=== PATIENT | male | born 1960 | race Caucasian/White ===

== ENCOUNTER 2017-10-19 16:53 | Emergency (ER) | payer BC, OTHER ==
[~2017-10-19] VITALS: Ht 182.9 cm; Wt 116.2 kg
[~2017-10-19 16:53] MED LIST: ASPEC325 PO; CLB200 PO; LRT5 PO
--- NOTE | 2017-10-19 17:18 | EMERGENCY ROOM VISIT NOTE ---
History Report prepared by Dc: Huan Anand Under the Supervision of: Dr. Mark Duque M.D. First contact with patient: 17:07 Chief Complaint: ILLNESS Stated Complaint: SICK,CHILLS History of Present Illness The patient is a 57 year old male with a past medical history of a hip replacement and partial lung lobectomy who presents to the ED with a cc of a fever and chills that began about a week ago following a bug bite that occurred on September 27. The patient explains the pain as a body ache and is also experiencing dry heaves. The patient reports that he was first put on Bactrim, but the site of the bite flared up again about a week ago with some of the pain radiating to his elbow causing soreness. The patient reports that after this flare up he took Bactrim and Prednisone. Positive Dry cough, and psoriasis. Negative for dysuria and back pain. Source of History: patient Onset: A week ago Position: elbow (left) Quality: ache Associated Symptoms: + fevers, + chills, + cough, + vomiting (Dry Heaves), No back pain, No urinary symptoms Review of Systems See HPI for pertinent positives and negatives. A total of ten systems were reviewed and were otherwise negative. Family History Patient reports no known family medical history. Social History Smoking Status: Former Smoker Marital Status: Current/Historical Medications Scheduled Doxycycline Monohydrate (Monodox), 100 MG PO BID Sulfa/Trimethoprim (Bactrim Ds 800MG/160MG), 1 TAB PO BID Scheduled PRN Ondansetron Hcl (Zofran), 4 MG PO Q8H PRN for Nausea Allergies Coded Allergies: No Known Allergies (Unverified , 12/12/09) Physical Exam Vital Signs Date Time Temp Pulse Resp B/P (MAP) Pulse Ox O2 Delivery O2 Flow Rate FiO2 10/19/17 18:50 37.7 73 20 163/89 98 Room Air 10/19/17 17:29 94 Room Air 10/19/17 16:56 37.8 110 20 151/78 94 Room Air Physical Exam GENERAL: Awake, alert, well-appearing, NAD, wearing glasses HENT: Normocephalic, atraumatic. EYES: Normal conjunctiva. Sclera non-icteric. PERRL. No anisocoria. NECK: Supple. No nuchal rigidity. FROM. RESPIRATORY: CTAB, no rhonchi, wheezing, crackles CARDIAC: Tachycardic, regular rhythm, no MRG ABDOMEN: Soft, NTND, BS+ MSK: No chest wall TTP, no LE edema, Good AROM and PROM NEURO: GCS 15, CN 2-12 intact, moves all 4s on command SKIN: no jaundice noted. Diffused erythema over left proximal UE to elbow. Plaque like rash over lower abdomen Medical Decision & Procedures ER Provider Diagnostic Interpretation: Radiology results as stated below per my review and radiologist interpretation: SINGLE VIEW CHEST CLINICAL HISTORY: Fever. Sepsis. FINDINGS: An AP, portable, upright chest radiograph is compared to study dated 11/17/2009. The examination is degraded by portable technique and patient rotation. The heart is top normal for projection and there is atherosclerotic calcification of the thoracic aorta. The pulmonary vasculature is noncongested. There is patchy airspace consolidation at the left lung base. Atelectasis is noted at the right lung base. No large pleural effusion or pneumothorax is seen. Scattered calcified granulomas are observed. The bony thorax is grossly intact. Degenerative changes noted in the thoracic spine. IMPRESSION: There is patchy airspace consolidation at the left lung base typical in appearance for pneumonia. Radiographic follow-up to resolution is recommended. Electronically signed by: Gabe Mora M.D. 10/19/2017 6:36 PM Dictated Date/Time: 10/19/2017 6:35 PM Laboratory Results 10/19/17 17:45 Red Blood Count 4.35, Mean Corpuscular Volume 89.0, Mean Corpuscular Hemoglobin 31.0, Mean Corpuscular Hemoglobin Concent 34.9, Mean Platelet Volume 9.5, Neutrophils (%) (Auto) 82.2, Lymphocytes (%) (Auto) 9.4, Monocytes (%) (Auto) 7.2, Eosinophils (%) (Auto) 0.5, Basophils (%) (Auto) 0.2, Neutrophils # (Auto) 5.23, Lymphocytes # (Auto) 0.60, Monocytes # (Auto) 0.46, Eosinophils # (Auto) 0.03, Basophils # (Auto) 0.01 10/19/17 17:45 Test 10/19/17 17:45 10/19/17 17:47 White Blood Count 6.36 K/uL (4.8-10.8) Red Blood Count 4.35 M/uL (4.7-6.1) Hemoglobin 13.5 g/dL (14.0-18.0) Hematocrit 38.7 % (42-52) Mean Corpuscular Volume 89.0 fL (80-100) Mean Corpuscular Hemoglobin 31.0 pg (25-34) Mean Corpuscular Hemoglobin Concent 34.9 g/dl (32-36) Platelet Count 256 K/uL (130-400) Mean Platelet Volume 9.5 fL (7.4-10.4) Neutrophils (%) (Auto) 82.2 % Lymphocytes (%) (Auto) 9.4 % Monocytes (%) (Auto) 7.2 % Eosinophils (%) (Auto) 0.5 % Basophils (%) (Auto) 0.2 % Neutrophils # (Auto) 5.23 K/uL (1.4-6.5) Lymphocytes # (Auto) 0.60 K/uL (1.2-3.4) Monocytes # (Auto) 0.46 K/uL (0.11-0.59) Eosinophils # (Auto) 0.03 K/uL (0-0.5) Basophils # (Auto) 0.01 K/uL (0-0.2) RDW Standard Deviation 46.4 fL (36.4-46.3) RDW Coefficient of Variation 14.1 % (11.5-14.5) Immature Granulocyte % (Auto) 0.5 % Immature Granulocyte # (Auto) 0.03 K/uL (0.00-0.02) Anion Gap 7.0 mmol/L (3-11) Est Creatinine Clear Calc Drug Dose 96.4 ml/min Estimated GFR () 83.4 Estimated GFR (Non- 72.0 BUN/Creatinine Ratio 11.2 (10-20) Calcium Level 8.3 mg/dl (8.5-10.1) Total Bilirubin 0.4 mg/dl (0.2-1) Direct Bilirubin 0.1 mg/dl (0-0.2) Aspartate Amino Transf (AST/SGOT) 21 U/L (15-37) Alanine Aminotransferase (ALT/SGPT) 34 U/L (12-78) Alkaline Phosphatase 81 U/L (45-117) Total Protein 7.6 gm/dl (6.4-8.2) Albumin 3.1 gm/dl (3.4-5.0) Lyme Disease IgG Antibody POS (NEG) Venous Blood pH 7.48 (7.36-7.41) Venous Blood Partial Pressure CO2 35 mmHg (38.0-50.0) Venous Blood Partial Pressure O2 61 mmHg Venous Blood HCO3 25 mmol/L Venous Blood Oxygen Saturation 91.7 % Venous Blood Base Excess 1.9 mEq/L Laboratory results reviewed by me Medications Administered Medications (Trade) Dose Ordered Sig/Natasha Route Start Time Stop Time Status Last Admin Dose Admin Sodium Chloride 2,000 ml @ 999 mls/hr Q2H1M STAT IV 10/19/17 17:20 10/19/17 19:20 DC 10/19/17 18:00 999 MLS/HR Vancomycin HCl 2000 mg/Sodium Chloride 540 ml @ 200 mls/hr ONE STAT IV 10/19/17 17:20 10/19/17 20:01 10/19/17 17:59 200 MLS/HR Ketorolac Tromethamine (Toradol Inj) 30 mg NOW STAT IV 10/19/17 17:20 10/19/17 17:23 DC 10/19/17 18:00 30 MG Acetaminophen (Tylenol Tab) 650 mg NOW STAT PO 10/19/17 17:20 10/19/17 17:23 DC 10/19/17 17:59 650 MG ECG Per My Interpretation Indication: vomiting (Dry heaves ), weakness Rate (beats per minute): 98 Rhythm: normal sinus Findings: other (Normal intervals and normal axis) ED Course 1713: The patient was evaluated in room C11B. A complete history and physical exam was performed. 1901: I reevaluated the patient and discussed lab and imaging results 1929: I reevaluated the patient. Discussed results and discharge instructions: He verbalized understanding and agreement. The patient is ready for discharge. Medical Decision Nursing notes reviewed. Ancillary studies and prior records reviewed. The patient is a 57 year old male with a past medical history of a hip replacement and partial lung lobectomy who presents to the ED with a cc of a fever and chills that began about a week ago following a bug bite that occurred on September 27. Differential diagnosis: Etiologies such as viral syndrome, otitis, pharyngitis, pneumonia, influenza, meningitis, urinary tract infection, sepsis, bacteremia, cellulitis, abscess, MRSA infection, DVT, necrotizing fasciitis, dermatitis, drug eruption, as well as others were entertained.. Patient was seen and evaluated the bedside. The patient has had a history of being prescribed antibiotics x2 over the last 2 weeks for possible cellulitic skin infection. The patient was placed on Bactrim each time. The patient believes he has some sort of bite while down at [place]. Patient has developed fever. Also chills. Patient does not look toxic in appearance. Patient did have blood work completed along with a VBG blood work, Lyme's test, urinalysis and chest x-ray to rule out concomitant infection. The patient does have an area of cellulitis. The patient was given a dose of vancomycin. Patient's blood work shows a normal white blood cell count. Gas is normal. Bicarb also normal. I do not believe that the patient requires further treatment as the patient did test positive for Lyme's and he may have a concomitant left lower lobe pneumonia. I believe Doxy is suitable treatment. Curb 65 score of 0. Patient did receive a first dose. Believe is suitable for outpatient follow-up treatment at this time. Blood [facility] cultures were drawn and if they do grow something patient will receive a call back. I did explain all results to the patient. Patient was given strict follow-up, discharge, and return precautions. All questions were answered. Patient was deemed suitable for outpatient follow-up at this time. Patient agreed with the plan of care and was safely discharged home. Medication Reconcilliation Current Medication List: was personally reviewed by me Blood Pressure Screening Patient's blood pressure: Elevated blood pressure Blood pressure disposition: Referred to PCP Impression Primary Impression: Acute Lyme disease Additional Impression: Pneumonia Scribe Attestation The scribe's documentation has been prepared under my direction and personally reviewed by me in its entirety. I confirm that the note above accurately reflects all work, treatment, procedures, and medical decision making performed by me. Departure Information Dispostion Home / Self-Care Prescriptions Ondansetron Hcl (ZOFRAN) 4 Mg Tab 4 MG PO Q8H Y for Nausea, #12 TAB Prov: Mark Duque M.D. 10/19/17 Doxycycline Monohydrate (Monodox) 100 Mg Cap 100 MG PO BID for 21 Days, #42 CAP Prov: Mark Duque M.D. 10/19/17 Referrals No Doctor, Assigned (PCP) Forms HOME CARE DOCUMENTATION FORM, IMPORTANT VISIT INFORMATION, WORK / SCHOOL INSTRUCTIONS Patient Instructions ED Lyme Disease, ED Pneumonia Adult, My [facility] Additional Instructions Please return to the emergency department if you have worsening or recurrent symptoms not amenable to at-home treatment. Please call for a follow-up appointment with her primary care physician. Please take your medications as prescribed. If you have other concerns and/or complaints please feel free to also call your primary care physician's office or return the ED for further evaluation, management, and treatment. You received narcotic or benzodiazepene medication while in the emergency room today. This is an addictive medication that may cause drowziness as well as constipation. Do not drive, operate heavy machinery, or drink alcohol under the influence of this medication. You may take 600 mg Ibuprofen every 6 hours as needed for pain/fever with food unless told by your physician not to take NSAIDs. You may take tylenol 650 mg every 6 hours as needed for pain/fever unless told by your physician to not take it or have liver problems. You may take motrin and tylenol separately or at the same time. Take your medications as prescribed. If taking an antibiotic consider taking a probiotic and/or eating yogurt, but at the least, please take with food as it can cause upset stomach. If culture results are not available at discharge, if they are positive for concern of infection, you will be informed of the results as soon as they are available. You have been examined and treated today on an emergency basis only. This is not a substitute for, or an effort to provide, complete comprehensive medical care. It is impossible to recognize and treat all injuries or illnesses in a single emergency department visit. It is therefore important that you follow up closely with [facility], your PCP, and/or your specialist(s). Call as soon as possible for an appointment. Thank you for your time and consideration. I look forward to speaking with you again soon. Please don't hesitate to call us if you have any questions. Problem Qualifiers Additional Impression: Pneumonia Pneumonia type: due to unspecified organism Laterality: left Lung location : lower lobe of lung Qualified Codes: J18.1 - Lobar pneumonia, unspecified organism
[2017-10-19] MEDS ORDERED: SODIUM CHLORIDE 0.9% 1000ML 2,000 ML IV STA (17:20)
[2017-10-19] MEDS ORDERED: ACETAMINOPHEN 325 MG TAB PO STA (17:20)
[2017-10-19] MEDS ORDERED: VANCOMYCIN IV 2,000 MG in SODIUM CHLORIDE 0.9% 500ML 500 ML IV STA (17:20)
[2017-10-19] MEDS ORDERED: KETOROLAC TROMETHAMINE 30 MG/ML VIAL IV STA (17:20)
[2017-10-19 17:29] VITALS: O2SAT 94; Ht 182.9 cm; Wt 116.2 kg
[2017-10-19] MEDS ORDERED: VANCOMYCIN CONSULT ACTIVE PRN (17:30)
[2017-10-19 18:11] LABS: BASO % 0.2 %; BASO ABS # 0.01 K/uL (0-0.2); EOS % 0.5 %; EOS ABS # 0.03 K/uL (0-0.5); HEMATOCRIT 38.7 % (42-52); HEMOGLOBIN 13.5 g/dL (14.0-18.0); IG# 0.03 K/uL (0.00-0.02); LYMPH % 9.4 %; MEAN CORPUSCULAR HGB CONC 34.9 g/dl (32-36); MEAN PLATELET VOLUME 9.5 fL (7.4-10.4); MONO % 7.2 %; MONO ABS # 0.46 K/uL (0.11-0.59); NEUT % 82.2 %; NEUT ABS # 5.23 K/uL (1.4-6.5); PLATELET COUNT 256 K/uL (130-400); RED CELL DISTRIBUTION WIDTH CV 14.1 % (11.5-14.5); RED CELL DISTRIBUTION WIDTH SD 46.4 fL (36.4-46.3); WHITE BLOOD COUNT 6.36 K/uL (4.8-10.8)
[2017-10-19] MEDS ORDERED: SULF800T23 PO (18:12)
[2017-10-19 18:31] LABS: ALBUMIN 3.1 gm/dl (3.4-5.0); CALCIUM 8.3 mg/dl (8.5-10.1); CREATININE 1.14 mg/dl (0.60-1.40); POTASSIUM 4.1 mmol/L (3.5-5.1); TOTAL PROTEIN 7.6 gm/dl (6.4-8.2)
--- NOTE | 2017-10-19 18:38 | DIAGNOSTIC IMAGING REPORT ---
SINGLE VIEW CHEST CLINICAL HISTORY: Fever. Sepsis. FINDINGS: An AP, portable, upright chest radiograph is compared to study dated 11/17/2009. The examination is degraded by portable technique and patient rotation. The heart is top normal for projection and there is atherosclerotic calcification of the thoracic aorta. The pulmonary vasculature is noncongested. There is patchy airspace consolidation at the left lung base. Atelectasis is noted at the right lung base. No large pleural effusion or pneumothorax is seen. Scattered calcified granulomas are observed. The bony thorax is grossly intact. Degenerative changes noted in the thoracic spine. IMPRESSION: There is patchy airspace consolidation at the left lung base typical in appearance for pneumonia. Radiographic follow-up to resolution is recommended. Electronically signed by: Gabe Mora M.D. 10/19/2017 6:36 PM Dictated Date/Time: 10/19/2017 6:35 PM
[2017-10-19 18:50] VITALS: TEMP 37.7
[2017-10-19] MEDS ORDERED: DOXYCYCLINE HYCLATE 100 MG CAP PO STA (18:58)
[2017-10-19] MEDS ORDERED: DOXY100C76 PO (19:21)
[2017-10-19] MEDS ORDERED: ONDA4TAB46 PO (19:21)
[2017-10-19 19:35] VITALS: BP 159/84; PULSE 75; O2SAT 99
== END 2017-10-19 19:25 | disposition home or self-care (01) ==
LOC: C.EDB 16:54 → C.EDC 19:25
DX: A69.20 Lyme disease, unspecified (principal); J18.1 Lobar pneumonia, unspecified organism

== ENCOUNTER 2019-07-07 09:15 | Inpatient (IN) ==
--- NOTE | 2019-07-01 11:12 | History & Physical Report ---
Date of Service July 01, 2019 Assessment & Plan (1) Neurogenic claudication due to lumbar spinal stenosis: This time the patient presents with worsening pain and decline in strength affecting predominantly left lower extremity. Based on his presentation and imaging I am recommending an urgent lumbar decompression and fusion to adequately decompress the nerves, reestablish foraminal height and hopefully halt the progression of strength deficits and permanent neurologic sequela affecting predominantly left lower extremity. With time he hopefully regain some strength. He would also be able to return to work. Risk benefits pros cons alternatives were outlined in detail. Try to have surgery range performed in a stop in time. Present on Admission?: Yes History of Present Illness Chief Complaint: Back and bilateral leg pain with weakness Primary Care Provider: Darin Aviles PA-C This is a 59-year-old male that returns to our office with progressive decline in status since his last visit. He describes lumbosacral back pain radiating to the bilateral buttocks with extension of the pain down the left lower extremity. He has been unable to work since the symptoms began and he is limitations with any standing and walking. He is describing marked progressive weakness affecting particularly left lower extremity with pushoff during ambulation. Allergies Allergy/AdvReac Type Severity Reaction Status Date / Time No Known Allergies Verified 05/18/19 11:09 Home Medications Home Medications Medication Instructions Recorded Confirmed Type gabapentin 300 mg capsule 300 mg PO USEASDIRECTD #90 cap 03/24/19 05/18/19 Rx gabapentin 300 mg capsule 300 mg PO USEASDIRECTD #90 cap 03/24/19 05/18/19 Rx lisinopril 20 1 tab PO QAM 03/24/19 05/18/19 History mg-hydrochlorothiazide 25 mg tablet meloxicam 7.5 mg tablet 7.5 mg PO BID tab 03/24/19 05/18/19 History Past Med/Surg History Social History Preferred Language: Beninese Communication Ability: Effective Beliefs That Will Affect Care: None Current Living Situation: Family Feels Safe at Home: Yes Smoking Status: Never smoker Second Hand Exposure: Yes (DAILY BASIS) ; Hx Alcohol Use: Yes Alcohol type: beer Hx Substance Use: No Physical Exam Physical Exam: Patient is alert and oriented On exam patient has marked tension signs with straight leg raising on the leftsevere pain on the right. Was able to stand and ambulate about the room with an antalgic gait. He is unable to perform a single heel raise on the left. The right is a 5 or 5. Quadriceps appears to be intact on bench exam. Dorsiflexion is intact and symmetric bilaterally. There is dense numbness to expection of the left lower extremity compared to the right. Results & Data Diagnostic Findings MRI of the lumbar spine demonstrates advanced degenerative disc disease with disc herniation at L5-S1. Adjacent levels appear to be healthy and well aligned. There is significant neural compression vertically on the left side affecting the traversing S1 nerve root. There is advanced bilateral neuroforaminal disease as well.
[~2019-07-07 09:15] MED LIST changes: +ACETAMINOPHEN 500 MG TAB PO SCH; -ASPEC325 PO; +CEFAZOLIN 2000MG 2,000 MG/15 ML SYR IV SCH; -CLB200 PO; +CeleBREX 200 MG CAP PO SCH; +GABAPENTIN 600 MG DOSE PO SCH; +LR 15ML/HR IV SCH; -LRT5 PO
[2019-07-07] MEDS ORDERED: MIDAZOLAM HCL 1 MG/ML 2ML VIAL ONE (10:22)
[2019-07-07] MEDS ORDERED: ONDANSETRON INJ 2 MG/ML 2 ML VIAL ONE (10:22)
[2019-07-07] MEDS ORDERED: LIDOCAINE HCL 2% 2 ML VIAL/AMP(20MG/ML) INFIL ONE (10:22)
[2019-07-07] MEDS ORDERED: ROCURONIUM BROMIDE 10 MG/ML 5 ML VIAL ONE (10:22)
[2019-07-07] MEDS ORDERED: fentaNYL citrate 100 MCG/2 ML VIAL ONE ×3 (10:22→14:32)
[2019-07-07] MEDS ORDERED: PROPOFOL IV EMULSION 10 MG/ML 20 ML VIAL IV ONE (10:22)
[2019-07-07] MEDS ORDERED: DEXAMETHASONE SOD INJ 4 MG/ML VIAL ONE (10:22)
--- NOTE | 2019-07-07 10:22 | History & Physical Bridge Note ---
Date of Service July 07, 2019 History & Physical Bridge Note I have examined the patient, reviewed the History & Physical and in the interval since the performance of the History & Physical I have noted the following changes of clinical significance: no changes noted
[2019-07-07] MEDS ORDERED: ONDANSETRON INJ 2 MG/ML 2 ML VIAL IV PRN ×2 (10:53→16:18)
[2019-07-07] MEDS ORDERED: HYDROmorphone INJ 1 MG/ML SYRINGE IV PRN ×2 (10:53→16:18)
[2019-07-07] MEDS ORDERED: ePHEDrine sulfate 50 MG/ML AMP IV PRN (10:53)
[2019-07-07] MEDS ORDERED: ATROPINE SULFATE 0.1 MG/ML 10ML SYR IV PRN (10:53)
[2019-07-07] MEDS ORDERED: BUPIVACAINE/EPINEPHRINE 0.5% MPF 1:200,000 10 ML VIAL ONE (11:00)
[2019-07-07] MEDS ORDERED: BACITRACIN INJ 50,000 UNIT VIAL ONE (11:01)
[2019-07-07] MEDS ORDERED: NEOSTIGMINE METHYLSULFATE 5 MG/5 ML SYR ONE (12:56)
[2019-07-07] MEDS ORDERED: GLYCOPYRROLATE 0.2 MG/ML VIAL ONE (12:56)
[2019-07-07] MEDS ORDERED: FLOSEAL HEMOSTATIC MATRIX 10ML TOP ONE ×3 (13:03→13:04)
--- NOTE | 2019-07-07 13:43 | Operative Report ---
Post Operative Report Pre & Post Diagnosis Operation Date: 07/07/19 11:05 Pre-Op Diagnosis: Spinal Stenosis, Lumbar Region Post-Op Diagnosis: Spinal Stenosis, Lumbar Region I identified the patient and participated in the time-out.: Yes Procedure Operation Date: 07/07/19 11:05 Actual Procedures #1 lumbar decompression bilateral medial facetectomies and foraminotomies L5-S1 per #2 posterior spinal fusion L5-S1 per #3 placement posterior instrumentation L5-S1 per #4 interbody fusion L5-S1. #5 placement of titanium cage 14 x 26 mm at L5-S1 per #6 placement of locally harvested morselized autograft in the posterior lateral gutters. #7 placement infuse collagen sponge count master graft in the posterior lateral gutters and ostial amp and interbody space. Surgeon Дмитрий Estrella, Biochemistry Technologist Emilee Grimes Estimated Blood Loss 200 Findings See Below The patient is 6 foot tall weighing over 122 kg with a BMI in excess of 36. The patient's body habitus did add significant technical difficulty throughout the procedure requiring her deepest retractors and longus instruments in order to perform his operation. This added at least 50% increase in operative time. Specimens None Indications This is a 59-year-old male who presents with worsening back and right leg pain with progressive weakness. Subsequently we moved forward with urgent decompression fusion. Description of Procedure Patient was met with preop the case discussed all questions were addressed at that point patient was taken back to operative suite underwent intubation placed in a prone position on the Clemente table on top of the Wyatt frame. All bony prominences well-padded eyes inspected to ensure no external pressure placed upon the. This point the lumbar spine was prepped and draped in normal sterile fashion. Sharp dissection with the assistance of Bovie cautery performed down to and exposing the lamina and transverse processes of L5 and sacral ala bilaterally. From caudal cephalad fashion complete laminectomy of L5 was performed including medial facetectomies and foraminotomies particular addressing severe stenosis and pressure on the exiting L5 and S1 nerve roots on the left. There is evidence of calcified disc material attached directly to the S1 root on the left. After this was removed pedicle screws were placed in L5 and S1 levels bilaterally with assistance of fluoroscopy and proper sized paul placed. By way of a transforaminal approach on the left complete discectomy was performed endplates coated to subcortical bleeding bone and a 14 x 26 mm titanium cage filled with osteo-bone graft tapped in position. The rods were then locked in final position bilaterally. The transverse processes of L5 and the sacral ala burred to subcortical bleeding bone. Infuse collagen sponge master graft local autograft placed in the posterior lateral gutters. 15 round TUYET drain inserted. The incision was then closed with 1 Vicryl in the fascia 2-0 Vicryl subcutaneously and 4 Monocryl for final skin closure. Steri-Strip sterile dressings placed. Patient will continue PACU stable addition. Please note spinal cord monitoring was utilized that the procedure no changes noted. Lastly Emilee Grimes was present at the entire procedure involved the patient positioning complex portions of the surgery and final skin closure. I attest to the content of the Intraoperative Record and any orders documented therein. Any exceptions are noted below.
[2019-07-07] MEDS ORDERED: HYDROmorphone INJ 2 MG/ML SYR/VIAL ONE (14:05)
[2019-07-07] MEDS: fentaNYL citrate 100 MCG/2 ML VIAL IV PRN ×4 (14:33→14:54)
--- NOTE | 2019-07-07 14:35 | Fluoroscopy Report ---
LUMBAR SPINE, INTRAOPERATIVE FLUOROSCOPY HISTORY: L5-S1 decompression fusion. FLUOROSCOPY TIME: 20 seconds. FINDINGS: Intraoperative fluoroscopy was provided for the lumbar spine. 2 fluoroscopic spot images we re obtained. Posterior decompression fusion at L5-S1 with pedicle screws and rods. There is a disc sp acer present. The hardware appears intact. IMPRESSION: Fluoroscopy provided for a L5-S1 posterior decompression and fusion. ACT 112: Negative or not required by law. Electronically signed by: Jason Nieves M.D. 07/07/2019 2:33 PM
[2019-07-07] MEDS ORDERED: HYDROmorphone INJ 1 MG/ML SYRINGE ONE (15:22)
--- NOTE | 2019-07-07 15:53 | Anesthesiology Progress Note ---
Date of Service July 07, 2019 Anesthesia Post Procedure Vital Signs Vital Signs: Temp Pulse Pulse Resp BP BP Pulse Ox 07/07/19 15:40 75 13 118/74 92 07/07/19 15:30 83 13 128/88 92 07/07/19 15:20 70 15 117/74 94 07/07/19 15:10 36.6 C 70 12 115/79 95 07/07/19 15:00 83 12 131/88 94 07/07/19 14:50 84 12 119/84 95 07/07/19 14:40 79 12 124/89 94 07/07/19 14:30 85 13 113/93 96 07/07/19 14:24 36.6 C 77 12 156/85 H 96 07/07/19 10:05 36.9 C 82 18 153/88 H 94 Pain Intensity Lower Back: Pain Intensity: 6 Transfer of Care Handoff Completed per policy Notes Mental Status: alert / awake / arousable and participated in evaluation Patient Amnestic to Procedure: Yes Nausea / Vomiting: adequately controlled Pain: adequately controlled Airway Patency, RR, SpO2: stable & adequate BP & HR: stable & adequate Hydration State: stable & adequate Anesthetic Complications: no major complications apparent and Pt Satisfied with anesthetic care
[2019-07-07] MEDS ORDERED: METOCLOPRAMIDE HCL INJ 5 MG/ML 2 ML VIAL IV PRN (16:18)
[2019-07-07] MEDS ORDERED: NALOXONE HCL 0.4 MG/1 ML VIAL/CARP IV PRN (16:18)
[2019-07-07] MEDS ORDERED: ALUMINUM/MAGNESIUM SUSP 30 ML UDC PO PRN (16:18)
[2019-07-07] MEDS ORDERED: MAGNESIUM HYDROXIDE SUSP 30 ML UDC PO PRN (16:18)
[2019-07-07] MEDS ORDERED: PROMETHAZINE HCL 12.5 MG in SODIUM CHLORIDE 0.9% 50 ML IV PRN (16:18)
[2019-07-07] MEDS ORDERED: DO NOT ADMINISTER FLU VACCINE PRN (16:18)
[2019-07-07] MEDS ORDERED: ACETAMINOPHEN 500 MG TAB PO PRN (16:18)
[2019-07-07] MEDS ORDERED: TRAMADOL HCL 50 MG TABLET PO PRN (16:18)
[2019-07-07] MEDS ORDERED: SOD PHOSPHATE/SOD BIPHOSPHATE ENEMA 132 ML BTL PR PRN (16:18)
[2019-07-07] MEDS ORDERED: ONDANSETRON 4 MG OD TAB PO PRN (16:18)
[2019-07-07] MEDS ORDERED: ACETAMINOPHEN 1,000 MG/100 ML VIAL IV PRN (16:18)
[2019-07-07] MEDS ORDERED: LORazepam 0.5 MG TAB PO PRN (16:18)
[2019-07-07] MEDS ORDERED: FAMOTIDINE 20 MG TAB PO PRN (16:18)
[2019-07-07] MEDS ORDERED: DO NOT ADMINISTER PNEUMOCOCCAL VACCINE PRN (16:18)
[2019-07-07] MEDS ORDERED: HYDROmorphone INJ 0.5 MG/0.5 ML SYR IV PRN (16:18)
[2019-07-07] MEDS ORDERED: LORazepam 0.5 MG/1 ML VIAL IV PRN (16:18)
[2019-07-07] MEDS ORDERED: bisacodyL 10 MG SUPP PR PRN (16:18)
--- NOTE | 2019-07-07 17:06 | Consultation ---
Date of Consultation July 07, 2019 Assessment & Plan (1) Neurogenic claudication due to lumbar spinal stenosis: Status post lumbar decompression fusion L5-S1 by Dr. Estrella POD #0 EBL 200 mL Tolerated procedure well Pain/wound management per Ortho Activity and therapy as directed by Ortho Encourage incentive spirometry and wean oxygen as able Monitor H&H (2) Hypertension: blood pressure stable continue lisinopril with parameters monitor potassium (3) Tobacco abuse: pt chews tobacco 1 pouch q2-3 days encourage nicotine cessation declines nicotine patch (4) ETOH abuse: drinks 2 budweisers daily, last drink 07/05 AWSS per protocol prn lorazepam (5) DVT prophylaxis: SCD/TEDS per primary Disposition: per primary Follow up: PCP Darin Aviles PA-C upon discharge Pt was seen and examined in collaboration with Dr. Matias, please see addendum Thank you for this consultation. We will follow the patient with you during their hospital stay. You can reach a member of the [facility] Hospitalist Team 01/10 via pager @ [phone]. Supervising Physician Co-Signing Physician Notes I have seen and examined the patient and have discussed the case with the provider above. I agree with the assessment and plan as stated. 59 yo M with lumbar surgery earlier today. Reports that his pain is well managed and he is otherwise asymptomatic. Tolerating PO. S1/2 heard without murmurs, no LE edema, lungs are clear to auscultation bilaterally. Wound is dressed and gauze is c/d/i with TUYET drain in place. Agree with care plan and recommendations as above. Thank you for this consultation. DO Florencio History of Present Illness Requesting Physician: Dr. Estrella Reason for Consultation: Postop medical management Attending Physician: Дмитрий Estrella DO History of Present Illness This is a 59-year-old male who has significant PMH of hypertension and psoriasis who underwent lumbar procedure by Dr. Estrella today. We have been consulted for medical management. He underwent L5-S1 decompression fusion and tolerated procedure well. According to patient he has been experiencing low back pain to the posterior left lower extremity. Postoperatively he feels well but is requesting analgesia. He denies any fever, chills, sweats, lightheadedness, dizziness, chest pain, shortness breath, palpitations, cough, nausea, vomiting, abdominal pain. Prior to procedure he denies any change in bowel or urinary habits. He did not have a Calderon catheter placed. Regarding his history of hypertension it is currently controlled with lisinopril 10 mg daily. He also has psoriasis in which he uses a as needed cream but recently has not needed. Allergies Allergy/AdvReac Type Severity Reaction Status Date / Time No Known Allergies Verified 07/07/19 10:03 Home Medications Home Medications Medication Instructions Recorded Confirmed Type gabapentin 300 mg PO BID 07/03/19 07/07/19 History lisinopril 20 mg PO DAILY 07/07/19 07/07/19 History Patient History Medical History (Updated 07/07/19 @ 17:09 by Radha Gallego PA-C) Bulging lumbar disc Chronic back pain Hypertension Numbness in left leg r/t back Obesity Tobacco abuse Surgical History History of hip replacement (Chronic) RIGHT History of lung surgery Bleb resection Hx of colonoscopy Hx of vasectomy Family History Mother Ovarian cancer Breast cancer Social History (Updated 07/07/19 @ 17:02 by Radha Gallego PA-C) Preferred Language: Libyan Communication Ability: Effective Reading Professor Required: No Beliefs That Will Affect Care: None Current Living Situation: Spouse Feels Safe at Home: Yes Smoking Status: Current every day smoker Tobacco Type: smokeless tobacco ; Second Hand Exposure: Yes ; Hx Alcohol Use: Yes Alcohol type: beer Hx Substance Use: No Review of Systems Review of Systems: All systems reviewed & are unremarkable except as noted in HPI & below Physical Exam Physical Exam: Constitutional: WD/WN, M vitals as above, NAD, sitting up in bed, conversing easily, answers questions appropriately, slightly drowsy Head: Normocephalic, Atraumatic Eyes: PERRL, conjunctivae normal, anicteric sclerae ENMT: external ear and nose normal, oropharynx normal Neck: trachea midline, no thyromegaly normal visual inspection Respiratory: normal respiratory effort, lungs clear to auscultation with decreased breath sounds at bases, no wheeze, rales, rhonchi. Normal insp/exp effort, no accessory muscle use, on O2 via NC Cardiovascular: RRR, no murmur, no edema, bilateral pedal pulse +2, bilateral SCDs and teds in place vessels: no JVD or carotid bruit Chest: normal inspection of chest Abdomen: normal bowel sounds, soft, nontender, no hepatosplenomegaly Musculoskeletal: no cyanosis or clubbing, moves all extremities x4, strength upper extremities 5/5 Skin: no rashes, warm and dry normal turgor, lumbar dressing CDI, TUYET drain intact with serosanguineous drainage Neurologic: PERRL, EOMI, accommodation nl, no face palsy, no dysarthria CN's II-XI intact bilaterally and moves all extremities Psychiatric: A+Ox3, euthymic affect Lymphatic: no cervical or axillary lymphadenopathy : deferred Results & Data ([facility]) Vital Signs (Past 12 Hours) Vital Signs Temp Pulse Pulse Resp BP BP Pulse Ox 07/07/19 16:35 36.5 C 79 16 130/82 93 07/07/19 16:05 36.7 C 74 14 138/80 96 07/07/19 15:40 75 13 118/74 92 07/07/19 15:30 83 13 128/88 92 07/07/19 15:20 70 15 117/74 94 07/07/19 15:10 36.6 C 70 12 115/79 95 07/07/19 15:00 83 12 131/88 94 07/07/19 14:50 84 12 119/84 95 07/07/19 14:40 79 12 124/89 94 07/07/19 14:30 85 13 113/93 96 07/07/19 14:24 36.6 C 77 12 156/85 H 96 07/07/19 10:05 36.9 C 82 18 153/88 H 94 Pulse Ox 07/07/19 16:35 07/07/19 16:05 96 07/07/19 15:40 07/07/19 15:30 07/07/19 15:20 07/07/19 15:10 07/07/19 15:00 07/07/19 14:50 07/07/19 14:40 07/07/19 14:30 07/07/19 14:24 07/07/19 10:05 Laboratory Results Preop lab work on 05/22/2019 CBC: WBC 7, H&H 15.4 and 44.3, platelet 320 BMP: Sodium 136, K4.9, BUN 16, creatinine 1.11, glucose 105 Diagnostic Findings Lumbar Spine Xray: IMPRESSION: Fluoroscopy provided for a L5-S1 posterior decompression and fusion. Medications Administered Acetaminophen (Tylenol) 1,000 mg PO PREOP MELISSA Stop: 07/07/19 18:00 Last Admin: 07/07/19 09:47 Dose: 1,000 mg Documented by: [id number] Celecoxib (Celebrex) 200 mg PO PREOP MELISSA Stop: 07/07/19 18:00 Last Admin: 07/07/19 09:47 Dose: 200 mg Documented by: [id number] Gabapentin (Neurontin) 600 mg PO PREOP MELISSA Stop: 07/07/19 18:00 Last Admin: 07/07/19 09:47 Dose: 600 mg Documented by: [id number] Hydromorphone HCl (Dilaudid) 0.5 mg IV Q3H PRN PRN Reason: MOD pain (scale 4-6) & Pre PT Stop: 07/21/19 16:17 Last Admin: 07/07/19 17:01 Dose: 0.5 mg Documented by: [id number] Lactated Ringer's (Lr) 1,000 mls @ 15 mls/hr IV .Q24H MELISSA Stop: 07/08/19 05:59 Last Infusion: 07/07/19 11:29 Dose: 0 mls/hr Documented by: [id number] Admin: 07/07/19 10:10 Dose: 15 mls/hr Documented by: [id number] Cefazolin Sodium (Ancef 2000mg) 2,000 mg in 15 mls @ 3.75 mls/min IV PREOP MELISSA; Protocol Stop: 07/07/19 18:00 Last Admin: 07/07/19 11:50 Dose: 3.75 mls/min Documented by: [id number] Discontinued Medications Bacitracin (Bacitracin) Confirm Administered Dose 50,000 units .ROUTE .STK-MED ONE Stop: 07/07/19 11:02 Last Admin: 07/07/19 13:02 Dose: 50,000 units Documented by: [id number] Bupivacaine HCl/Epinephrine Bitart (Sensorcaine/Epinephrine 0.5% Mpf 1:200,000) Confirm Administered Dose 30 ml .ROUTE .STK-MED ONE Stop: 07/07/19 11:01 Last Admin: 07/07/19 12:10 Dose: 30 ml Documented by: [id number] Fentanyl Citrate (Fentanyl Citrate) 25 mcg IV Q5M PRN PRN Reason: PACU Use Only-Pain Stop: 07/07/19 18:53 Last Admin: 07/07/19 14:54 Dose: 25 mcg Documented by: [id number] Admin: 07/07/19 14:46 Dose: 25 mcg Documented by: [id number] Admin: 07/07/19 14:41 Dose: 25 mcg Documented by: [id number] Admin: 07/07/19 14:33 Dose: 25 mcg Documented by: [id number] Fentanyl Citrate (Fentanyl Citrate) Confirm Administered Dose 100 mcg .ROUTE .STK-MED ONE Stop: 07/07/19 14:33 Last Admin: 07/07/19 17:03 Dose: Not Given Documented by: [id number] Hydromorphone HCl (Dilaudid) 0.25 mg IV Q5M PRN PRN Reason: PACU Use Only-Pain Stop: 07/07/19 18:53 Last Admin: 07/07/19 15:23 Dose: 0.25 mg Documented by: [id number] Hydromorphone HCl (Dilaudid) Confirm Administered Dose 1 mg .ROUTE .STK-MED ONE Stop: 07/07/19 15:23 Last Admin: 07/07/19 17:04 Dose: Not Given Documented by: [id number] Miscellaneous (Floseal Hemostatic Matrix 10ml) 10 ml TOP ONCE ONE Stop: 07/07/19 13:04 Last Admin: 07/07/19 13:41 Dose: 1 ml Documented by: [id number] Miscellaneous (Floseal Hemostatic Matrix 10ml) 10 ml TOP ONCE ONE Stop: 07/07/19 13:05 Last Admin: 07/07/19 13:42 Dose: 1 ml Documented by: [id number] ECG Rate (beats per minute): 68 Rhythm: normal sinus
[2019-07-07] MEDS ORDERED: LORazepam 1 MG TAB PO PRN (17:07)
[2019-07-07] MEDS: KETOROLAC 30 MG/ML VIAL IV SCH ×2 (17:49→23:33)
[2019-07-07] MEDS: LACTATED RINGER'S 1,000 ML IV SCH ×2 (17:50→23:34)
[2019-07-07] MEDS: CEFAZOLIN 2000MG 2,000 MG/15 ML SYR IV SCH (19:25)
[2019-07-07] MEDS: GABAPENTIN 300 MG CAP PO SCH (20:22)
[2019-07-07] MEDS: DOCUSATE SODIUM/SENNA 50/8.6MG TAB PO SCH (20:22)
[2019-07-07] MEDS: OXYCODONE HCL IR 5 MG TAB (IMMEDIATE RELEASE) PO PRN (22:31)
[2019-07-08] MEDS: CEFAZOLIN 2000MG 2,000 MG/15 ML SYR IV SCH (03:53)
[2019-07-08] MEDS: KETOROLAC 30 MG/ML VIAL IV SCH ×2 (05:28→10:45)
[2019-07-08] MEDS: POLYETHYLENE (MIRALAX) 17 GM PACK PO SCH ×3 (05:32→17:26)
[2019-07-08 05:45] LABS: Eosinophils # (auto) 0.01 K/uL (0-0.5); Eosinophils % (auto) 0.1 %; Hematocrit (blood only) 37.6 % (42-52); Hemoglobin 12.9 g/dL (14.0-18.0); Immature Granulocytes # (auto) 0.05 K/uL (0.00-0.02); Immature Granulocytes % (auto) 0.4 %; Lymphocytes % (auto) 6.9 %; Mean Corpuscular Hemoglobin 31.7 pg (25-34); Mean Corpuscular Hgb Conc 34.3 g/dL (32-36); Mean Corpuscular Volume 92.4 fL (80-100); Mean Platelet Volume 9.8 fL (7.4-10.4); Monocytes # (auto) 0.57 K/uL (0.11-0.59); Monocytes % (auto) 4.4 %; Neutrophils # (auto) 11.56 K/uL (1.4-6.5); Neutrophils % (auto) 88.2 %; Platelet Count 296 K/uL (130-400); RDW Coefficient of Variation 13.3 % (11.5-14.5); RDW Standard Deviation 44.6 fL (36.4-46.3); Red Blood Count 4.07 M/uL (4.7-6.1); White Blood Count 13.09 K/uL (4.8-10.8)
[2019-07-08 06:13] LABS: BUN Creatinine Ratio 14.3 (10-20); Calcium 8.5 mg/dl (8.5-10.1); Creatinine Clr Calc Pharmacy 79.3 ml/min; Est GFR (African American) 64.7; Est GFR (Non-African American) 55.9
--- NOTE | 2019-07-08 08:40 | Hospitalist Progress Note ---
Date of Service July 08, 2019 Assessment & Plan (1) Neurogenic claudication due to lumbar spinal stenosis: S/P lumbar decompression fusion L5-S1 (by Dr. Estrella on 07/07/2019) -operative estimated blood loss around 200 mL -management of TUYET drain as per orthopedic service -Hgb 12.9 on 07/08/2019 -monitor CBC (2) Hypertension: -continue home dose lisinopril 20 mg daily (3) Tobacco abuse: -chews tobacco 1 pouch every 2 to 3 days when at home -encourage nicotine cessation -patient had declined nicotine patch (4) ETOH abuse: -patient at home drinks 2 beers, last alcoholic drink 07/06/2019 -AWSS per protocol, prn lorazepam -07/08/2019: no evidence of alcohol withdrawal symptoms at this time (5) DVT prophylaxis: SCD/TEDS per primary Disposition: per primary Patient reports he has appointment with outpatient Primary Care KATELIN Murcia, on 07/10/2019 Admission and Anticipated Discharge Date Admission Date: July 07, 2019 Subjective TUYET drain to the back draining serosanguinous fluid. Patient sitting up in chair watching TV. no acute distress. breathing on room air. denies acute pain. he reports he was able to ambulate with walker yesterday. He does not report any new symptoms Review of Systems Review of Systems: All systems reviewed & are unremarkable except as noted in Subjective Physical Exam Constitutional: comfortable Eyes: PERRL, conjunctivae normal, anicteric sclerae ENMT: external ear and nose normal, oropharynx normal Neck: normal visual inspection Respiratory: normal respiratory effort, lungs clear to auscultation Cardiovascular: Rate/Rhythm: regular rate and regular rhythm Gastrointestinal (Abdomen): normal bowel sounds, soft, nontender, no hepatosplenomegaly Musculoskeletal: Head/Neck/Chest: normocephalic TUYET drain to the back Neurologic: PERRL, EOMI, accommodation nl, no face palsy, no dysarthria Psychiatric: A+Ox3, euthymic affect Results & Data Results & Data ([facility]) Vital Signs (Past 12 Hours) Vital Signs Temp Pulse Resp BP Pulse Ox Pulse Ox 07/08/19 07:29 36.4 C L 63 18 149/91 H 98 07/08/19 03:54 36.4 C L 60 18 122/76 97 07/07/19 23:45 96 07/07/19 23:31 36.5 C 60 18 119/67 96
[2019-07-08] MEDS: lisinopriL 20 MG TAB PO SCH (08:57)
[2019-07-08] MEDS: GABAPENTIN 300 MG CAP PO SCH ×2 (08:57→20:13)
[2019-07-08] MEDS ORDERED: LISINOPRIL/HCTZ 20/25MG 1 TAB PO SCH (09:00)
--- NOTE | 2019-07-08 10:33 | Orthopedic Progress Note ---
Date of Service July 08, 2019 Assessment & Plan (1) Neurogenic claudication due to lumbar spinal stenosis: At this time we will continue physical therapy monitor his TUYET output hopefully discharge home in the next few days. Present on Admission?: Yes Admission and Anticipated Discharge Date Admission Date: July 07, 2019 Subjective Patient's back pain is controlled left leg symptoms markedly improved. He perceives improvement in strength. Physical Exam Physical Exam: Patient is in a chair at the bedside. Appears comfortable. He has good strength testing the lower extremities. Results & Data ([facility]) Vital Signs (Past 12 Hours) Vital Signs Temp Pulse Resp BP Pulse Ox Pulse Ox 07/08/19 07:29 36.4 C L 63 18 149/91 H 98 07/08/19 03:54 36.4 C L 60 18 122/76 97 07/07/19 23:45 96 07/07/19 23:31 36.5 C 60 18 119/67 96
[2019-07-08] MEDS: OXYCODONE HCL IR 5 MG TAB (IMMEDIATE RELEASE) PO PRN (18:06)
[2019-07-08] MEDS: DOCUSATE SODIUM/SENNA 50/8.6MG TAB PO SCH (20:13)
[2019-07-09] MEDS: OXYCODONE HCL IR 5 MG TAB (IMMEDIATE RELEASE) PO PRN ×2 (02:23→11:39)
[2019-07-09 06:17] LABS: Basophils # (auto) 0.02 K/uL (0-0.2); Basophils % (auto) 0.2 %; Eosinophils # (auto) 0.11 K/uL (0-0.5); Eosinophils % (auto) 1.2 %; Hematocrit (blood only) 37.5 % (42-52); Hemoglobin 12.6 g/dL (14.0-18.0); Immature Granulocytes # (auto) 0.01 K/uL (0.00-0.02); Immature Granulocytes % (auto) 0.1 %; Lymphocytes # (auto) 1.36 K/uL (1.2-3.4); Lymphocytes % (auto) 14.4 %; Mean Corpuscular Hemoglobin 31.2 pg (25-34); Mean Corpuscular Hgb Conc 33.6 g/dL (32-36); Mean Corpuscular Volume 92.8 fL (80-100); Mean Platelet Volume 9.9 fL (7.4-10.4); Monocytes # (auto) 0.94 K/uL (0.11-0.59); Monocytes % (auto) 9.9 %; Neutrophils # (auto) 7.03 K/uL (1.4-6.5); Neutrophils % (auto) 74.2 %; Platelet Count 264 K/uL (130-400); RDW Coefficient of Variation 13.6 % (11.5-14.5); RDW Standard Deviation 46.6 fL (36.4-46.3); Red Blood Count 4.04 M/uL (4.7-6.1); White Blood Count 9.47 K/uL (4.8-10.8)
--- NOTE | 2019-07-09 07:37 | Hospitalist Progress Note ---
Date of Service July 09, 2019 Assessment & Plan (1) Neurogenic claudication due to lumbar spinal stenosis: S/P lumbar decompression fusion L5-S1 (by Dr. Estrella on 07/07/2019) -operative estimated blood loss around 200 mL -management of TUYET drain as per orthopedic service -Hgb 12.9 on 07/08/2019 -labs pending results for 07/09/2019 -monitor CBC -pain medications and antiemtics prn. (2) Hypertension: -continue home dose lisinopril 20 mg daily -monitor creatinine (3) Tobacco abuse: -chews tobacco 1 pouch every 2 to 3 days when at home -encourage nicotine cessation -patient had declined nicotine patch (4) ETOH abuse: -patient at home drinks 2 beers, last alcoholic drink 07/06/2019 -AWSS per protocol, prn lorazepam -07/08/2019: no evidence of alcohol withdrawal symptoms at this time (5) DVT prophylaxis: SCD/TEDS per primary Disposition: per primary Patient reports he has appointment with outpatient Primary Care KATELIN Murcia, on 07/10/2019 Admission and Anticipated Discharge Date Admission Date: July 07, 2019 Subjective Patient seen and examined in AM. He is laying on the bed. He feels more back discomfort today and requested the prn pain medication and nausea so he requested the prn anti-emetic. Patient has not vomited. Patient made bowel movement yesterday. breathing on room air. no shortness of breath. no dizziness. no chest pain. no pain or abdomen. patient denies other symptoms Review of Systems Review of Systems: All systems reviewed & are unremarkable except as noted in Subjective Physical Exam Constitutional: WD/WN, vitals as above Eyes: PERRL, conjunctivae normal, anicteric sclerae ENMT: external ear and nose normal, oropharynx normal Neck: normal visual inspection Respiratory: normal respiratory effort, lungs clear to auscultation Cardiovascular: Rate/Rhythm: regular rate and regular rhythm Gastrointestinal (Abdomen): normal bowel sounds, soft, nontender, no hepatosplenomegaly Musculoskeletal: Head/Neck/Chest: normocephalic TUYET drain to the back Neurologic: PERRL, EOMI, accommodation nl, no face palsy, no dysarthria Psychiatric: A+Ox3, euthymic affect Results & Data Results & Data ([facility]) Vital Signs (Past 12 Hours) Vital Signs Temp Pulse Resp BP Pulse Ox 07/08/19 23:09 36.7 C 79 16 131/78 95
[2019-07-09 08:02] LABS: Albumin Globulin Ratio 0.8 (0.9-2); Albumin Level 3.1 gm/dl (3.4-5.0); BUN Creatinine Ratio 13.8 (10-20); Bilirubin,Total 0.5 mg/dl (0.2-1); Calcium 8.8 mg/dl (8.5-10.1); Creatinine Clr Calc Pharmacy 112.4 ml/min; Est GFR (African American) 98.8; Est GFR (Non-African American) 85.2; Globulin 4.1 gm/dl (2.5-4.0); Potassium 4.3 mmol/L (3.5-5.1); Total Protein 7.2 gm/dl (6.4-8.2)
[2019-07-09] MEDS: lisinopriL 20 MG TAB PO SCH (09:04)
[2019-07-09] MEDS: GABAPENTIN 300 MG CAP PO SCH (09:04)
--- NOTE | 2019-07-09 10:18 | Discharge Summary ---
Date of Service July 09, 2019 Admission HPI Per Admitting Provider This is a 59-year-old male that returns to our office with progressive decline in status since his last visit. He describes lumbosacral back pain radiating to the bilateral buttocks with extension of the pain down the left lower extremity. He has been unable to work since the symptoms began and he is limitations with any standing and walking. He is describing marked progressive weakness affecting particularly left lower extremity with pushoff during ambulation. Principal Diagnosis Lumbar spinal stenosis with neurogenic claudication Discharge Data Allergies Allergy/AdvReac Type Severity Reaction Status Date / Time No Known Allergies Verified 07/07/19 10:03 Consultations 07/07/19 16:18 Consult Case Management - Discharge Planning Routine Consult Hospitalist Routine Procedures Performed Operation Date: 07/07/19 11:05 Actual Procedures p L5-S1 Decompression and Fusion with Spinal Cord Monitoring(Not Applicable) - Дмитрий Estrella DO Ordered Studies 07/07/19 11:05 FL fluoroscopy <1hr Routine FL lumbar spine 2-3V Routine Hospital Course (1) Neurogenic claudication due to lumbar spinal stenosis: Patient went lumbar decompression fusion tolerated this well was taken to the orthopedic floor postoperative. Postop day 1 he was up and ambulating left leg pain and strength improving. Postop day #2 continue to have improved strength pain controlled. TUYET drain decreased appropriately. Subsequent discharge home. Discharge orders and instructions were on the chart for further review. Total Time Total Time Spent Total Time Spent (In Minutes): 20 minutes Discharge Plan Discharge Items Patient Disposition: Home - Self-Care Reason For Visit: SPINAL STENOSIS, LUMBAR REGION Discharge Diagnosis: Lumbar spinal stenosis with neurogenic claudication Activity: As commented below Non-emergency contact: Primary Care Provider Call non-emergency contact if: you have any medication questions Follow-up/Referrals: Darin Aviles PA-C [Primary Care Provider] - Diet: Regular Addtl Attending Provider Instructions: ACTIVITY RECOMMENDATIONS: SELF CARE INSTRUCTIONS AFTER THORACIC/LUMBAR FUSIONS 1. You may walk to your tolerance. It is good exercise for your legs and back. Expect some back and intermittent leg aches and pains. 2. You may perform "counter-top" level activities (make a sandwich, melba with a project, etc.). 3. No bending or lifting of more than 10 pounds or back twisting of any nature (roll like a log when turning in bed). 4. You may ride in a car for 20-30 minutes at a time. No driving until after your first visit with your doctor. 5. Frequent changes of position and restricting sitting to 30 minutes at a time will help limit the amount of back spasms and stiffness you may experience. 6. You may discontinue the use of ambulatory aids (cane, crutches, etc.) once your strength and confidence allow. 7. You may mixing engineer the shower and let water strike your incision when you arrive home at least once daily. Do not take a tub bath, sit in a hot tub or go into a swimming pool until after your first recheck in the office. SPECIAL CARE INSTRUCTIONS: VERY IMPORTANT TO READ AND REVIEW A. Your surgical incision has been closed with a cosmetic suture under the skin that will dissolve in about 6 weeks. In 14 days, you can use a pair of clean scissors and cut the suture that is left outside of the skin at the ends of your incision. 1. The small skin tapes can be removed 7 days after surgery if they have not fallen off by that point. 2. You may keep the wound open to air as much as possible to promote healing after post-op day number 5 unless told otherwise by your doctor. 3. If you think the wound looks like it is becoming infected (redness or worsening drainage) and/or you are experiencing fever, chill or worsening back pain and muscle spasms, contact the office so that we may evaluate you as soon as possible. B. Complications are uncommon, but please contact us if you have any signs or symptoms of: 1. wound infection (fever higher than 102.5 degrees F, redness, separation of wound, drainage, or increasing pain from the incision) 2. blood clots in legs (pain, swelling, redness and warmth in legs) 3. urinary tract infection (fever higher than 102.5 degrees F, burning upon urination or increased frequency of urination) 4. nerve problems (inability to walk on your toes or heels, numbness, loss of bowel or bladder control) 5. any other symptoms that concern you C. Please call the office at if you have any concerns or quest ions about your operation or recovery. D. No smoking! Smoking drastically decreases the chance of a solid fusion. E. Do not take any anti-inflammatory medications (Indocin, Advil, Motrin, Aspirin, Naprosyn, etc.) as these may inhibit the chance of a solid fusion. Tylenol is okay to take for pain. MANAGING PAIN AFTER SPINAL SURGERY 1. Narcotic medication is intended for short-term use and will be provided for surgical pain. Surgical pain usually lasts for a period of 4-6 weeks. Narcotic medication includes Percocet, Vicodin, Darvocet, Tylenol #3 or Lortab. 2. Longer-term pain is more appropriately treated with non-narcotic medication such as Tylenol ES. 3. Muscle spasm is not appropriately treated with narcotics. Muscle relaxers such as Soma, Flexeril or Skelaxin can be used along with Tylenol ES. 4. Remember that we all live with some "aches and pains". This is not unusual or uncommon after an injury or as we get older. a. Back pain is expected and may include muscle spasms for 4 to 6 weeks after surgery. The pain should gradually improve. If the pain worsens for no apparent reason, please contact the office. b. Intermittent leg pain may also be experienced and should not be concerned about unless it worsens for no apparent reason. If so, please contact the office. 5. We will provide appropriate medication within the normal guidelines of their prescribed use. We will also be very cautious and aware of potential abuse and extended duration of patients' medication needs. a. Pain medications are for your comfort and to assist with sleep and rest so that the tissue can heal. They are not provided in order to return to normal activity and should not be used through the day. To do so or worsening pain at night can result from ongoing tissue damage and development of tolerance to the prescribed medicine. 6. Please allow 2-3 days to process refills. Prescriptions will not be mailed but must be picked up at the office. FOLLOW UP VISIT: Keep your scheduled follow-up appointment. Any questions, please call the office at . 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 Provider Instructions: Patient reports he has appointment with outpatient Primary Care KATELIN Murcia, on 07/10/2019 Pending Studies at Discharge: No Stand-Alone Forms: My [employer], Smoking Cessation Medications and DC Order Prescriptions: New tramadol 50 mg tablet 50 mg PO Q6H PRN (Reason: pain, moderate) Qty: 30 RF: 0 oxycodone 5 mg tablet 5 mg PO Q6H PRN (Reason: pain, severe) Qty: 30 RF: 0 Continued lisinopril 20 mg tablet 20 mg PO DAILY RF: 0 gabapentin 300 mg Capsule 300 mg PO BID RF: 0 Discharge Orders: Discharge Order (Routine); Ordered 07/09/19 Ordered By: Дмитрий Estrella Admission Data Admit Date/Time: 07/07/19 14:32 Attending Provider: Дмитрий Estrella Admit Provider: Дмитрий Estrella Primary Care Provider: Darin Aviles Other Providers: Eliazar Serrano
== END 2019-07-09 11:55 | disposition home or self-care (01) | DRG 455 ==
LOC: ASU 09:15 → 3E 14:32